=== PATIENT | female | born 1955 | race Caucasian/White ===

== ENCOUNTER → 2020-04-07 09:03 | Outpatient (CLI) | payer OTHER, SELFPAY ==
--- NOTE | 2020-04-07 09:04 | CA_ITS ---
APPROVED REPORT EXAM: Comprehensive 2D, Doppler, and color-flow Echocardiogram Termite Control Representative: Marina Tracy RT(R) Ht: 5 ft 0 in Wt: 104lbs BSA: 1.41 BP: 144/80 mmHg Indications: ex smokoer, HTN, Hyperlipidemia, murmur 2D Dimensions LVOT 1.93 cm (M/F) 1.5-2.5 M-Mode Dimensions RVDd 2.15 cm (0.9-2.6) LVDd 3.72 cm (3.5-5.7) LVDs 2.61 cm (3.5-5.7) IVSd 0.82 cm (0.6-1.1) PWd 0.90 cm (0.6-1.1) EF (Teich) 57.90% FS 29.80% EDV (Teich) 58.90 mL ESV (Teich) 24.80 mL LV Diastology E/A Ratio 1.29 Mitral Valve MV A Velocity 74.00 (40-130 cm/s) Left Ventricle Left atrium is mildly enlarged, left ventricle is normal size, mild concentric left ventricular hypertrophy, visually estimated ejection fraction 55% with no regional wall motion abnormality, grade 1 diastolic dysfunction seen without tissue Doppler evidence of raise left atrial pressure. Right Ventricle Right atrium and right ventricle are normal size and contractility. Aortic Valve Aortic valve is minimally thickened and fibrosed, there is no aortic stenosis or aortic insufficiency. Mitral Valve Mitral valve leaflets are minimally thickened, there is no mitral stenosis, there is mild mitral regurgitation. Tricuspid Valve Tricuspid valve is grossly normal, there is mild tricuspid regurgitation, tricuspid regurgitation jet velocity is inadequate for calculation of the right ventricular systolic pressure. Pulmonic Valve Pulmonic valve is poorly visualized. Great Vessels Aortic root is normal size. Pericardium No significant pericardial effusion noted. Conclusion 1. Mildly enlarged left atrium, normal left ventricular size, mild concentric left ventricular hypertrophy, visually estimated ejection fraction 55% with no regional wall motion abnormality, grade 1 diastolic dysfunction seen without tissue Doppler evidence of raise left atrial pressure. 2. Mild mitral and tricuspid regurgitation. 3. No significant pericardial effusion noted. Electronically signed by : Esau Moya, 04/07/2020 14:12:58
== END ==
PROVIDERS: PCP Emergency Medicine; Visit Provider Emergency Medicine
DX: R01.1 Cardiac murmur, unspecified (principal)
CPT/HCPCS: 93306

== ENCOUNTER → 2020-04-07 09:45 | Outpatient (CLI) | payer OTHER, SELFPAY ==
[2020-04-07 10:10] LABS: Basophils # 0.1 K/mm3 (0-0.2); Basophils % 0.5 % (0.1-2.0); Eosinophils # 0.8 K/mm3 (0.0-0.4); Eosinophils % 7.9 % (0.1-12.0); Hemoglobin 12.2 g/dL (12.2-16.2); Lymphocytes # 3.9 K/mm3 (0.7-4.5); Lymphocytes % 39.8 % (10-50); Mean Corpuscular HGB Conc 32.9 g/dL (31.8-35.4); Mean Corpuscular Hemoglobin 31.3 pg (27.0-31.2); Mean Corpuscular Volume 95.1 fl (81-99); Mean Platelet Volume 7.4 fl (7.4-10.4); Monocytes # 0.5 K/mm3 (0.1-1.0); Monocytes % 5.2 % (1.7-9.3); Neutrophils # 4.5 K/mm3 (1.8-7.8); Neutrophils % 46.5 % (37.0-80.0); Platelet Count 315 K/mm3 (142-424); Red Blood Count 3.89 M/mm3 (4.20-5.40); Red Cell Distribution Width 13.5 % (11.5-17.5); White Blood Count 9.7 K/mm3 (4.8-10.8)
[2020-04-07 10:24] LABS: INR 0.99 (0.9-1.1); Prothrombin Time 10.2 seconds (9.4-11.8)
[2020-04-07 11:02] LABS: 25-OH Vitamin D, Total 32.4 ng/mL (30-100)
[2020-04-07 11:03] LABS: Free T4 (Free Thyroxine) 1.06 ng/dl (0.78-2.19)
[2020-04-07 11:48] LABS: Chloride 110 mmol/L (98-107)
[2020-04-07 11:49] LABS: Potassium 4.8 mmoL/L (3.5-5.1); Sodium 137 mmol/L (136-145)
[2020-04-07 11:51] LABS: Alanine Aminotransferase 25 U/L (12-78); Albumin Level 3.8 g/dl (3.5-5.0); Albumin/Globulin Ratio 1.7 (1.1-1.8); Alkaline Phosphatase 57 U/L (38-126); Anion Gap 14.8 mEq/L (5-15); Aspartate Amino Transferase 42 U/L (14-36); Bilirubin,Total 0.3 mg/dl (0.2-1.3); Blood Urea Nitrogen 29 mg/dl (7-17); Carbon Dioxide 17 mmol/L (22.0-30.0); Estimated Glomerular Filt Rate 56 ml/min (>60); GFR (African American) 68 ML/MIN (>60); Globulin 2.3 g/dL (1.3-3.2); Total Protein,Serum 6.1 g/dl (6.3-8.2)
[2020-04-07 11:52] LABS: Calcium 9.4 mg/dl (8.4-10.2); Chol/HDL Ratio 1.8 (1-3.5); Cholesterol 156 mg/dl (140-200); Glucose 68 mg/dl (74-100); HDL Cholesterol 89 mg/dl (40-60); Triglycerides 60 mg/dl (30-150); VLDL Cholesterol 12 mg/dL (0-40)
[2020-04-07 12:05] LABS: Direct LDL Cholesterol 59.58 mg/dL (100-129)
[2020-04-07 12:23] LABS: Thyroid Stimulating Hormone 0.93 uIU/mL (0.465-4.68)
== END ==
PROVIDERS: Visit Provider Emergency Medicine
DX: E87.6 Hypokalemia (principal); E55.9 Vitamin D deficiency, unspecified
CPT/HCPCS: 36415; 80053; 80061; 82306; 84439; 84443; 85025; 85610

== ENCOUNTER 2021-02-01 14:00 | Outpatient (RCR) | payer OTHER, SELFPAY ==
--- NOTE | 2020-11-30 13:36 | HMH.PTOPEV ---
PT Outpatient Evaluation Rehab PT Outpatient Evaluation Start: 11/30/20 13:02 Freq: Status: Active Protocol: Document 11/30/20 13:27 PHORLAILA (Rec: 11/30/20 13:36 PHORNE [id number]) Electronically Signed By Wayne Stokse, PT 11/30/20 13:27 Outpatient Therapy Subjective History Subjective History Pt is 65 yowf who presents with c/o poor balance and multiple falls x ~ 2-3 yrs. She reports 2 falls within the last 6 mos with head lacerations or hematomas. She reports no specific reason for falls and no c/o vertigo, dizziness, or lightheadedness. She reports hx of colon cancer with multiple surgeries and ileostomy, cervical spine fusion and arthritis. Chief Complaint Decreased Coordination Symptoms Aggravated By Physical Activity Prior Functional Limitations None Current Functional Limitations Recreation Activity,Walking, Bending/Stooping Symptom Description Intermittent Balance Eval Hx of Falls Hx Falls Yes Number in last 6 months 2 Gait/Posture Asssessment Ankle/Foot Observation in Gait Swing Decreased Foot Clearance Body Alignment Posture Rigid Rhomberg Feet Together/Eyes open/Stable Surface pass Feet Together/Eyes Closed/Stable Surface pass Feet Together/Eyes open/Unstable Surface fail Feet Together/Eyes Closed/Unstable fail Surface Dynamic Gait Index Test Protocol Gait Level Surface Normal Query Text: Instructions: Walk at your normal speed from here to the next aaron (20'). Grading: Aaron the lowest category that applies. Change in Gait Speed Normal Query Text: Instructions: Begin walking at your normal pace (for 5'), when I tell you go , walk as fast as you can (for 5'). When I tell you slow , walk as slowly as you can (for 5'). Grading: Aaron the lowest category that applies. Gait with Horizontal Head Turns Normal Query Text: Instructions: Begin walking at your normal pace. When I tell you to look right , keep walking straight, but turn you head to the right. Keep looking to the right unit I tell you look left , then keep walking straight and turn your head to the left. Keep your head to the left until I tell you look straight , then keep walking straight, but return you head to the center. Grading: Aaron the lowest category that applies.
--- NOTE | 2020-12-27 13:47 | HMH.RHREAS ---
Rehab Reassessment Rehab OP Re-assessment Start: 12/27/20 13:43 Freq: Status: Active Protocol: Document 12/27/20 13:43 JESUS (Rec: 12/27/20 13:47 JESUS [id number]) Electronically Signed By Wayne Stokes, PT 12/27/20 13:43 Rehab Re-assessment Subjective Subjective Pt reports she feels a little better, but still loses he rbalance from time to time. Objective Objective Notes DGI: MMT: B LE grossly 5/5 except hip flexors 4+/5 Assessment Progress Assessment Progressing as Expected Assessment Notes Pt continues to have difficulty with vertical head turns during ambulation and DGI score has not changed at this time. However, her overall balance has improved and her ambulation endurance is drastically increased. Patient goals met ST,2,[address] LT,2,3,4,5,6 Revised Goals none Plan Plan Continue per initial POC Frequency of Therapy 2 x/wk Duration of therapy 8 wks Time and Billing Re-Eval Time 15 Re-Eval Billing Units 0 PHYSICIAN CERTIFICATION: I certify the specified therapy services for Loren Yuan are required, authorized, and reviewed every 30 days.
== END 2021-04-04 14:39 | disposition home or self-care (01) ==
LOC: PT 14:00
PROVIDERS: PCP Emergency Medicine; Visit Provider Emergency Medicine
DX: R26.89 Other abnormalities of gait and mobility (principal)
CPT/HCPCS: 97110; 97112; 97163; 97164

== ENCOUNTER 2021-04-10 14:00 | Outpatient (RCR) | payer MEDICARE, OTHER, SELFPAY ==
--- NOTE | 2021-02-05 09:38 | HMH.PTOPWND ---
Rehab Outpt Wound Evaluation Rehab OP Wound Evaluation Start: 02/05/21 09:24 Freq: Status: Active Protocol: Document 02/05/21 09:24 JESUS (Rec: 02/05/21 09:38 PHORLAILA [id number]) Electronically Signed By Wayne Stokes, PT 02/05/21 09:24 Subjective/History History History Pt is 65 yowf who presents with c/o increased B LE edema x 1-2 mos, L > R. She reports increased pain with the increased edema as well. She has hx of multiple abdominal surgeries due to rectal cancer with colectomy and current ileostomy. She reports tenderness in B lower legs with palpation. Subjective Subjective Pain 5/10 at worst in B LE. Tenderness to palpation 2/4 B LE gaitor area. Lymphedema Eval Classification of Lymphedema Secondary Lymphedema Yes Stemmer's sign Stemmer's Sign no Stage of Lymphedema Lymphedema stages Stage I (Pitting edema, reduces w/ elevation, no fibrosis) Skin Changes Dry Skin Yes Taut, Shiny Skin Yes Redness Yes Discoloration of Skin Yes Pain Scale Pain Scale (0-10) 5 Radiation Therapy Has received radiation therapy yes Chemo Therapy Has received chemo therapy yes Affected Extremities Areas Affected by Lymphedema/Edema Right Lower Extremity,Left Lower Extremity Manual Lymphatic Drainage Treatment Area MLD Treatment Area Right Lower Extremity,Left Lower Extremity Wound Problems/Impairments Impairments Problems/Impairmments Palpation Tenderness,Impaired Endurance,Impaired Walking, Impaired Recreational Activities,Increased Edema, Lymphedema Present,Subjective C/O Pain,Impaired Self Care/ Self Management Prognosis Rehab Potential Good Clinical Impression Consistent with Diagnosis Yes Short Term Goals Number of Weeks 4 Decreased Palpation Tenderness Yes: 1/4 Improve Gait Pattern without Assistive Yes Device Decrease Edema Yes Decrease Subjective C/O Pain Yes: 3/10 Patient to Understand Lymphedema Yes Treatment and Exercises Digital Sales Representative Goals Number
--- NOTE | 2021-03-06 11:39 | HMH.RHREAS ---
Rehab Reassessment Rehab OP Re-assessment Start: 03/06/21 11:35 Freq: Status: Active Protocol: Document 03/06/21 11:36 JESUS (Rec: 03/06/21 11:39 JESUS [id number]) Electronically Signed By Wayne Stokes, PT 03/06/21 11:36 Rehab Re-assessment Subjective Subjective Pt reports feeling better overall, but doesn' tlike to wear her compression garments because she doesn't like the way they look. Objective Objective Notes Pitting edema in LE now 1+. Palpation tenderness: 1/4 pain 2/10 at worst. Assessment Progress Assessment Progressing as Expected Assessment Notes Improved edema and much less pain at this point. Continues to need further treatment for edema reduction though. Needs t oincrease compression use at home as well. Patient goals met ST,2,3,4,5 Goals Not Met LT,2,3,4,5,6 Revised Goals none Plan Plan Continue per initial POC. Frequency of Therapy 2 x/wk Duration of therapy 8 wks Time and Billing Re-Eval Time 15 Re-Eval Billing Units 1 PHYSICIAN CERTIFICATION: I certify the specified therapy services for Loren Yuan are required, authorized, and reviewed every 30 days.
--- NOTE | 2021-04-10 14:09 | HMH.RHREAS ---
Rehab Reassessment Rehab OP Re-assessment Start: 03/06/21 11:35 Freq: Status: Active Protocol: Document 04/10/21 14:03 JESUS (Rec: 04/10/21 14:06 JESUS [id number]) Electronically Signed By Wayne Stokes, PT 04/10/21 14:03 Rehab Re-assessment Subjective Subjective Pt reports feeling better overall, She has less tightness in B LE. Objective Objective Notes Edema: No pitting edema noted at this time, minimal fibrotic edema noted. Decreased erythema to B LE. Assessment Assessment Notes Much improved pain, reduced edema overall, less fibrotic edema. Improved compliance with compression at home. Patient goals met ST,2,3,4,5 Goals Not Met LT,2,3,4,5,6 Revised Goals none Plan Plan Continue per initial POC. Frequency of Therapy 2 x/wk Duration of therapy 8 wks Time and Billing Re-Eval Time 15 Re-Eval Billing Units 0 PHYSICIAN CERTIFICATION: I certify the specified therapy services for Loren Yuan are required, authorized, and reviewed every 30 days.
== END 2021-04-10 14:05 | disposition home or self-care (01) ==
LOC: PT 14:00
PROVIDERS: PCP Emergency Medicine; Visit Provider Emergency Medicine
DX: R60.0 Localized edema (principal)
CPT/HCPCS: 97140; 97162; 97164

== ENCOUNTER 2021-04-10 15:00 | Outpatient (RCR) | payer MEDICARE, OTHER, SELFPAY | END 2021-04-10 15:05 | disposition home or self-care (01) | LOC: PT 15:00 | PROVIDERS: PCP Emergency Medicine; Visit Provider Physical Medicine & Rehabilitation | DX: M46.07 Spinal enthesopathy, lumbosacral region (principal); M54.2 Cervicalgia; M47.812 Spondylosis without myelopathy or radiculopathy, cervical region; M54.5 Low back pain; G89.4 Chronic pain syndrome | CPT/HCPCS: 97014; 97110; 97163; G0283 ==

== ENCOUNTER → 2021-04-11 13:13 | Outpatient (CLI) | payer MEDICARE, OTHER, SELFPAY ==
[2021-04-11 23:55] LABS: Amphetamine/Metha Screen,Urine Negative ng/ml (<1000); Barbiturates Screen,Urine Negative ng/ml (<200); Benzodiazepines Screen,Urine Negative ng/ml (<200); Cannabinoid Screen,Urine Positive ng/ml (<50); Cocaine Screen,Urine Negative ng/ml (<300); Methadone Screen,Urine Negative ng/ml (<300); Opiate Screen,Urine Positive ng/ml (<300); Phencyclidine Screen,Urine Negative ng/ml (<25)
== END ==
PROVIDERS: Visit Provider Emergency Medicine
DX: M25.519 Pain in unspecified shoulder (principal); M54.2 Cervicalgia; Z85.048 Personal history of other malignant neoplasm of rectum, rectosigmoid junction, and anus
CPT/HCPCS: 80305

== ENCOUNTER → 2021-07-04 13:41 | Outpatient (CLI) | payer MEDICARE, OTHER, SELFPAY ==
[2021-07-04 15:17] LABS: Barbiturates Screen,Urine Negative ng/ml (<200)
[2021-07-04 15:18] LABS: Benzodiazepines Screen,Urine Negative ng/ml (<200)
[2021-07-04 15:19] LABS: Cannabinoid Screen,Urine Negative ng/ml (<50); Cocaine Screen,Urine Negative ng/ml (<300)
[2021-07-04 15:20] LABS: Methadone Screen,Urine Negative ng/ml (<300)
[2021-07-04 15:21] LABS: Opiate Screen,Urine Positive ng/ml (<300); Phencyclidine Screen,Urine Negative ng/ml (<25)
[2021-07-04 15:26] LABS: Amphetamine/Metha Screen,Urine Negative ng/ml (<1000)
== END ==
PROVIDERS: Visit Provider Emergency Medicine
DX: M25.519 Pain in unspecified shoulder (principal); M54.2 Cervicalgia
CPT/HCPCS: 80305

== ENCOUNTER → 2022-06-12 16:40 | Outpatient (CLI) | payer MEDICARE, MEDICAID, SELFPAY ==
[2022-06-12 14:28] LABS: Basophils # 0.1 K/mm3 (0-0.2); Basophils % 0.6 % (0.1-2.0); Eosinophils # 0.1 K/mm3 (0.0-0.4); Eosinophils % 0.5 % (0.1-12.0); Hematocrit 47.2 % (37.0-47.0); Hemoglobin 14.6 g/dL (12.2-16.2); Lymphocytes # 1.6 K/mm3 (0.7-4.5); Lymphocytes % 10.4 % (10-50); Mean Corpuscular HGB Conc 30.9 g/dL (31.8-35.4); Mean Corpuscular Hemoglobin 31.3 pg (27.0-31.2); Mean Corpuscular Volume 101.3 fl (81-99); Monocytes # 0.6 K/mm3 (0.1-1.0); Monocytes % 4.2 % (1.7-9.3); Neutrophils # 12.8 K/mm3 (1.8-7.8); Neutrophils % 84.2 % (37.0-80.0); Platelet Count 359 K/mm3 (142-424); Red Blood Count 4.66 M/mm3 (4.20-5.40); Red Cell Distribution Width 13.6 % (11.5-17.5); White Blood Count 15.2 K/mm3 (4.8-10.8)
[2022-06-12 14:33] LABS: MANUAL DIFFERENTIAL MANUAL DIFFERENTIAL (MANUAL DIFF)
[2022-06-12 14:37] LABS: Alanine Aminotransferase 65 U/L (12-78); Albumin Level 4.3 g/dl (3.5-5.0); Albumin/Globulin Ratio 1.8 (1.1-1.8); Alkaline Phosphatase 79 U/L (38-126); Aspartate Amino Transferase 63 U/L (14-36); Bilirubin,Total 0.4 mg/dl (0.2-1.3); Blood Urea Nitrogen 21 mg/dl (7-17); Calcium 9.6 mg/dl (8.4-10.2); Carbon Dioxide 21 mmol/L (22.0-30.0); Chloride 108 mmol/L (98-107); Cholesterol 207 mg/dl (140-200); Estimated Glomerular Filt Rate 72 ml/min (>60); GFR (African American) 87 ML/MIN (>60); Globulin 2.4 g/dL (1.3-3.2); Glucose 75 mg/dl (74-100); Sodium 138 mmol/L (136-145); Total Protein,Serum 6.7 g/dl (6.3-8.2); Triglycerides 83 mg/dl (30-150); VLDL Cholesterol 17 mg/dL (0-40)
[2022-06-12 14:49] LABS: Direct LDL Cholesterol 68.14 mg/dL (100-129)
[2022-06-12 14:52] LABS: Chol/HDL Ratio 1.7 (1-3.5); HDL Cholesterol 123 mg/dl (40-60)
[2022-06-12 14:53] LABS: 25-OH Vitamin D, Total 33.9 ng/mL (30-100)
[2022-06-12 15:07] LABS: Thyroid Stimulating Hormone < 0.02 uIU/mL (0.465-4.68)
[2022-06-12 15:26] LABS: Lymphocytes % 11 % (10-50); Macrocytosis 1+; Monocytes % 6 % (2-9); Neutrophils % 83 % (42-76); Total Cells Counted 100
[2022-06-12 15:27] LABS: Platelet Estimate Normal
== END ==
PROVIDERS: PCP Emergency Medicine; Visit Provider Emergency Medicine
DX: E78.5 Hyperlipidemia, unspecified (principal); E87.6 Hypokalemia; R01.1 Cardiac murmur, unspecified; Z79.899 Other long term (current) drug therapy; E55.9 Vitamin D deficiency, unspecified
CPT/HCPCS: 80053; 80061; 82306; 84439; 84443; 85007; 85025

== ENCOUNTER → 2022-06-25 12:32 | Outpatient (CLI) | payer MEDICARE, MEDICAID, SELFPAY ==
--- NOTE | 2022-06-25 12:53 | CA_ITS ---
APPROVED REPORT EXAM: Comprehensive 2D, Doppler, and color-flow Echocardiogram Steam Crane Operator: Irma Man RVT Ht: 5 ft 0 in Wt: 104lbs BSA: 1.41 BP: 138/78 mmHg Indications: MURMUR,HTN,DM,HLD,EX SMOKER 2D Dimensions LVOT 1.84 cm (M/F) 1.5-2.5 LA Volume 23.90 mL LA Volume Index 16.95 mL/m2 (M/F) 16-34 M-Mode Dimensions RVDd 2.38 cm (0.9-2.6) LA Diam 3.89 cm (1.9-4.0) LVDd 3.93 cm (3.5-5.7) Ao Diam 2.10 cm (2.0-3.7) LVDs 2.27 cm (3.5-5.7) IVSd 1.02 cm (0.6-1.1) PWd 0.64 cm (0.6-1.1) EF (Teich) 73.90% FS 42.20% EDV (Teich) 67.10 mL TAPSE 2.19 (<1.7) ESV (Teich) 17.50 mL LV Diastology E Decel Time 150.00 (160-240 msec) E/A Ratio 0.7 MED E' 10.00 (< 7 cm/sec) E'/MED E' Ratio 7.25 (>14) LAT E' 10.50 (<10 cm/sec) E/LAT E' Ratio 6.90 (>14) Aortic Valve AO Peak GR. 7.40 mmHg Mitral Valve MV E Max Dario. 73.00 (40-130 cm/s) MV A Velocity 108.00 (40-130 cm/s) E/A Ratio 0.67 MV Decel. Time 150.00 (160-240 ms) MV PHT 44.00 ms Pulmonary Valve PV Peak Velocity 129.00 (50-150 cm/s) Tricuspid Valve TR P. Velocity 301.00 cm/s RAP Estimate 10.00 mmHg RVSP 46.20 mmHg Left Ventricle Left atrium is mildly enlarged, left ventricle is normal size, mild concentric left ventricular hypertrophy, estimated ejection fraction 55% with no regional wall motion abnormality, grade 1 diastolic dysfunction seen without tissue Doppler evidence of raise left atrial pressure. Right Ventricle Right atrium and right ventricle are normal size and contractility. Aortic Valve Aortic valve is minimally thickened and fibrosed, there is no aortic stenosis or aortic insufficiency. Mitral Valve Mitral valve is grossly normal, there is trace mitral regurgitation. Tricuspid Valve Tricuspid valve grossly normal, there is trace tricuspid regurgitation tricuspid regurgitation jet velocity is inadequate for calculation of the right ventricular systolic pressure. Pulmonic Valve Pulmonic valve is poorly visualized. Great Vessels Aortic root is normal size. Inferior vena cava is poorly visualized. Pericardium No significant pericardial effusion noted. Conclusion 1. Mildly enlarged left atrium, normal left ventricular size, mild concentric left ventricular hypertrophy, estimated ejection fraction 55% with no regional wall motion abnormality, grade 1 diastolic dysfunction seen without tissue Doppler evidence of reduced left atrial pressure. 2. Trace mitral and tricuspid regurgitation. 3. No significant pericardial effusion noted. 4. Inferior vena cava is poorly visualized. Electronically signed by : Esau Moya MD 06/26/2022 05:49:34
[2022-06-25 15:47] LABS: Thyroid Stimulating Hormone 0.08 uIU/mL (0.465-4.68)
== END ==
PROVIDERS: PCP Emergency Medicine; Visit Provider Emergency Medicine
DX: R01.1 Cardiac murmur, unspecified (principal); E03.9 Hypothyroidism, unspecified
CPT/HCPCS: 36415; 84443; 93306